=== PATIENT | male | born 1995 ===

== ENCOUNTER 2018-10-19 02:27 | Inpatient (IN) | payer MEDICARE, BC ==
[~2018-10-19] VITALS: Ht 180.3 cm; Wt 75.7 kg
[2018-10-19] VITALS (11 sets, daily range): BP systolic 99–166; BP diastolic 40–110; Ht 180.3 cm; Wt 75.7 kg
[~2018-10-19 02:27] MED LIST: CARB100C4 PO; CYCL10TA29 PO; DULO60CA7 PO; GABA-549 PO; HYDR-4225 PO; NOR25 PO; OXYB10TA21 PO; OXYC-823 PO; TAMS0.4C70 PO
[2018-10-19] MEDS ORDERED: NORMOSOL R SOLN(*) 1000 ML BAG 1,000 ML IV PRN (06:30)
[2018-10-19] MEDS ORDERED: ceFAZolin(*) 1 GM VIAL 1 GM in NS(*) 0.9% 100 ML ADDVANT BAG 100 ML IVPB ONE (06:30)
[2018-10-19] MEDS ORDERED: LIDOCAINE/SOD BICARB 8.4% SYR ID ONE (06:30)
[2018-10-19] MEDS ORDERED: ROPIVACAINE 0.2% 400 MG/200ML 250 ML CONINFUS ONE (06:30)
[2018-10-19] MEDS ORDERED: FAMOTIDINE 20 MG TAB PO ONE (06:30)
[2018-10-19] MEDS ORDERED: MIDAZOLAM 2 MG/2 ML VIAL IVP PRN (06:30)
[2018-10-19] MEDS ORDERED: ROPIVACAINE 0.2% 20 ML VIAL ONE ×2 (10:33→11:25)
[2018-10-19] MEDS ORDERED: ROPIVACAINE 0.5% 20 ML VIAL ONE (10:33)
[2018-10-19] MEDS ORDERED: DEXAMETHASONE SOD PHOS 10MG/ML ONE (10:40)
[2018-10-19] MEDS ORDERED: LIDOCAINE 2% IV 100 MG/5ML SYR ONE (10:46)
[2018-10-19] MEDS ORDERED: fentaNYL CITR 250 MCG/5 ML AMP ONE (10:46)
[2018-10-19] MEDS ORDERED: PROPOFOL EMUL(*) 10MG/ML 20 ML 20 ML ONE (10:47)
[2018-10-19] MEDS ORDERED: KETAMINE HCL 200 MG/20 ML MDV ONE (10:49)
[2018-10-19] MEDS ORDERED: EPINEPHrine HCL 1 MG/ML AMP ONE (11:24)
[2018-10-19] MEDS ORDERED: BUPIV/EPI 0.25% 1:200,000 50ML INFIL ONE (11:24)
[2018-10-19] MEDS ORDERED: GELATIN SPONGE SZ 100 ONE (11:24)
[2018-10-19] MEDS ORDERED: GELATIN SPONGE 12-7MM ONE (11:25)
[2018-10-19] MEDS ORDERED: MINERAL OIL LIGHT 10 ML VIAL ONE (12:00)
[2018-10-19] MEDS ORDERED: DEXAMETHASONE SOD 4 MG/ML VIAL ONE (12:48)
[2018-10-19] MEDS ORDERED: ONDANSETRON 4 MG/2 ML VIAL ONE (12:50)
[2018-10-19] MEDS ORDERED: fentaNYL CITR 100 MCG/2 ML AMP ONE (14:44)
[2018-10-19] MEDS ORDERED: diphenhydrAMINE 25 MG CAP PO PRN (16:45)
[2018-10-19] MEDS ORDERED: BISACODYL 10 MG SUPP PR PRN (16:45)
[2018-10-19] MEDS ORDERED: KCL/D5LR 20 MEQ/1000 ML PREMIX 1,000 ML IV PRN (16:45)
[2018-10-19] MEDS ORDERED: MAGNESIUM HYDROXIDE* 30ML UDCP PO PRN (16:45)
[2018-10-19] MEDS ORDERED: FLUSH 10 ML SYR IVP PRN (16:45)
[2018-10-19] MEDS ORDERED: MAGNESIUM CITRATE 300 ML BTL PO PRN (16:45)
[2018-10-19] MEDS ORDERED: ONDANSETRON 4 MG/2 ML VIAL IVP PRN (16:45)
[2018-10-19] MEDS ORDERED: KETOROLAC 30 MG/ML VIAL IVP PRN (16:45)
[2018-10-19] MEDS ORDERED: ACETAMINOPHEN 500 MG TAB PO PRN (16:45)
[2018-10-19] MEDS ORDERED: PROMETHAZINE 25 MG/ML 1 ML AMP IVP PRN (16:45)
--- NOTE | 2018-10-19 17:04 | RADIOLOGY IMAGING REPORT ---
[place] [facility] [place] NAME: Greg Broussard : 1995 MR: [id number] V: [id number] EXAM DATE: ORDERING PHYSICIAN: TORSTEN DALE TECHNOLOGIST: Location: [facility] Patient: Greg Broussard : 1995 Visit/Account:[id number] Date of Sevice: 10/19/2018 Technique: C-ARM FLUORO 1 HR HISTORY: RIGHT ANKLE Comparison studies: None FINDINGS: 6 operative fluoroscopic images were obtained of the right ankle. 2 cortical screws sasha e the subtalar joint. There is also postoperative changes traversing the tibiotalar joint. Fluoroscopy time: 1.32 minutes IMPRESSION: 1. Intraoperative fluoroscopic radiographs as described above. Please see operative report for furth er details. Report Dictated By: Maik Trammell DO at 10/19/2018 4:57 PM Report E-Signed By: Maik Trammell DO at 10/19/2018 4:59 PM WSN:[id number]
[2018-10-19] MEDS: ceFAZolin(*) 1 GM VIAL 1 GM in NS(*) 0.9% 100 ML ADDVANT BAG 100 ML IVPB SCH (20:02)
--- NOTE | 2018-10-19 20:34 | OPERATIVE REPORT 1 ---
EVENT DATE: October 19, 2018 SURGEON: Shaun Decker MD ANESTHESIOLOGIST: Neri Guerrero MD ANESTHESIA: multi township assessor: JUDI Celis PREOPERATIVE DIAGNOSIS Acute vascular necrosis of the talus. POSTOPERATIVE DIAGNOSIS Acute vascular necrosis of the talus. PROCEDURE PERFORMED Calcaneal/tibial/talar fusion. ESTIMATED BLOOD LOSS Minimal. DESCRIPTION OF OPERATION Patient was brought to the operating room and placed in a supine position. A bump was placed under the right hip, and right lower extremity was prepped and draped in the normal sterile fashion using Prevail, sterile stockinettes, sterile U-drape, and sterile extremity drape over the lower extremities. Stockinette was incised above the knee and held with Coban. Esmarch was then used to exsanguinate the lower extremity, and the tourniquet was turned up to 300 mmHg. First incision made directly over the lateral malleolus. Skin was incised with a 15 blade down to subcutaneous tissue. Subcutaneous tissue was bluntly dissected down to the fibula. I then bluntly dissected over to the syndesmosis. I was able to clean out the syndesmosis. I placed two Hohmanns around the fibula, and about 2 cm proximal from the ankle joint, I used an oscillating saw to transect the fibula. I transected it completely across. From here, I rotated the fibula completely laterally. I was able to debride in between. I then cut the fibula longitudinally using a saw and was able to take half of the fibula out for bone graft. At this point, I was able to get into the ankle. A lamina hand cutter apprentice was placed into the ankle and found we could find the nonunion using a Hillsgrove. I was able to use the [place] to get to the nonunion, but the screws were still in place. I then made an incision both medial and lateral on the talar neck. I was able to find the screws. Two of them were lateral, which I was able to remove without any difficulty. One was medial, which I was able to remove as well. Once I had all three screws completely removed, I then removed the screws out of the medial malleolus, making a small incision over the distal tip of the medial malleolus, finding the screws, and removing them with the appropriate screwdriver. Once that was all done, I then turned my attention back to the nonunion. I was able to then take a [place]grove and go right through the nonunion. 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 Some of it actually was alive, but most of it was completely . I was able to remove that with a rongeur osteotome. Once that was completely removed, I then removed all the cartilage that was left on the subtalar joint and cartilage on the distal tibia, though there was not much on distal tibia due to the significant arthritis. Once I had that removed, I did a 2.0 drill bit perforating the subchondral bone on the tibia and on the talus as much as possible, and I felt I had good bleeding at both sides. At this point, I turned my attention to getting the foot in the correct position. What I was able to do is get the foot almost to 90 degrees, but the translated posteriorly so actually the neck of the talus that was still present was now underneath the tibia so I could get some good compression between the tibia and the calcaneus and the talar neck. Once I had that in the appropriate position and very, very good compression, I then placed the pin from the plantar aspect of the heel just slightly laterally. Under fluoroscopy both in AP and lateral, I was able to get the pin directly up into the tibia. Once it was directly up into the tibia, I drilled the calcaneus, drilled it through, and I was actually able to drill a little bit into the talar neck and into the tibia. At this point, we drilled up to a 10.5, reamed up to a 10.5, and put a 10 mm, 150 Integra tibial nail up without any difficulty. Once I felt I got that in a decent position checking on AP and lateral, through the guide that was present, I placed two screws from the calcaneus into the posterior calcaneus, making a small incision. Drills were then placed, and two screws were placed into the calcaneus through the nail without any difficulty. Once I had those screws in place, I again made sure the foot was as close to neutral as I could get and compressed as well. Then, we drilled two screws distal and one proximal through the nail using the guides. Once those were in appropriate position checking on fluoroscopy AP and lateral, we thought we had good compression as well. We then finished our bone graft. We had actually taken the volume that we had taken out and cut it down by half, so I did not feel like we needed iliac crest bone graft at this point. I used part of the fibula graft, I used part of the good talus that was left, and I used DBX bone to pack into this area. We actually had good fixation of the graft as well. Once I was done, I then took the rest of the fibula, brought it back over like a biological plate, put two screws, one distal and one proximal, holding it position to even give it more stability. At this point, I checked fluoroscopy AP and lateral, found to have good position, good compression, good alignment. We closed using 3-0 Monocryl and bria, Adaptic 4 x 4's, a big, bulking Schultz dressing. The patient went to Recovery. No complications. JESUS
[2018-10-20 03:39] VITALS: BP 114/45
[2018-10-20] MEDS: ceFAZolin(*) 1 GM VIAL 1 GM in NS(*) 0.9% 100 ML ADDVANT BAG 100 ML IVPB SCH ×2 (03:59→11:29)
[2018-10-20 07:24] VITALS: BP 93/46
--- NOTE | 2018-10-20 09:35 | DISCHARGE SUMMARY ---
HOSPITAL COURSE Greg underwent a talar resection, tibiotalar calcaneal fusion with fibular bone grafting. He did extremely well during surgery. Postoperative night one, he did have a little drainage from the incisions but it was rewrapped and it stopped. His pain was well controlled with a popliteal and saphenous block. Postoperative day one, he passed physical therapy in which he was up moving around, nonweightbearing. I then discharged him home with pain medication to follow up in two weeks, nonweightbearing for two months on that side. I will see him back in two weeks in the office for reevaluation. JESUS
[2018-10-20 10:17] VITALS: BP 119/63
== END 2018-10-20 14:00 | disposition home or self-care (01) | DRG 493 ==
LOC: OR 02:27 → MED 17:40
PROVIDERS: ADMIT Orthopaedic Surgery; ATTEND Orthopaedic Surgery
PROC: 0SPF04Z Removal of Internal Fixation Device from Right Ankle Joint, Open Approach (ICD-10-PCS; 2018-10-19)
PROC: 0QTL0ZZ Resection of Right Tarsal, Open Approach (ICD-10-PCS; 2018-10-19)
PROC: 0SGH07Z Fusion of Right Tarsal Joint with Autologous Tissue Substitute, Open Approach (ICD-10-PCS; principal; 2018-10-19 12:26)
PROC: 0SGG04Z Fusion of Left Ankle Joint with Internal Fixation Device, Open Approach (ICD-10-PCS; 2018-10-19 12:26)
DX: M87.874 Other osteonecrosis, right foot (principal); S92.10 Unspecified fracture of talus; M21.371 Foot drop, right foot; G40.909 Epilepsy, unspecified, not intractable, without status epilepticus; Z87.820 Personal history of traumatic brain injury
CPT/HCPCS: 76000; 76942; 97162; J0171; J0690; J1100; J1885; J2001; J2250; J2405; J2704; J2795; J3010; J3490; J7050

== ENCOUNTER 2019-06-14 00:58 | Inpatient (IN) | payer MEDICARE, BC ==
[2019-06-14] VITALS (16 sets, daily range): BP systolic 86–142; BP diastolic 58–130
[~2019-06-14] VITALS: Ht 180.3 cm; Wt 75.7 kg
[~2019-06-14 00:58] MED LIST changes: +BREX0.5T PO; +DICL-195 PO; +ceFAZolin(*) 1 GM VIAL 1 GM in NS(*) 0.9% 100 ML MINI-BAG 100 ML IVPB ONE
[2019-06-14] MEDS ORDERED: ceFAZolin(*) 1 GM VIAL 1 GM in NS(*) 0.9% 100 ML MINI-BAG 100 ML IVPB ONE (05:40)
[2019-06-14] MEDS ORDERED: FAMOTIDINE 20 MG TAB PO ONE (06:15)
[2019-06-14] MEDS ORDERED: MIDAZOLAM 2 MG/2 ML VIAL IVP PRN (06:15)
[2019-06-14] MEDS ORDERED: NORMOSOL R SOLN(*) 1000 ML BAG 1,000 ML IV PRN (06:15)
[2019-06-14] MEDS ORDERED: LIDOCAINE/SOD BICARB 8.4% SYR ID ONE (06:15)
[2019-06-14] MEDS ORDERED: ONDANSETRON 4 MG/2 ML VIAL ONE (06:25)
[2019-06-14] MEDS ORDERED: LIDOCAINE MPF 1% 5 ML VIAL ONE (06:25)
[2019-06-14] MEDS ORDERED: PROPOFOL EMUL(*) 10MG/ML 20 ML 20 ML ONE (06:25)
[2019-06-14] MEDS ORDERED: DEXAMETHASONE SOD 4 MG/ML VIAL ONE (06:25)
[2019-06-14] MEDS ORDERED: fentaNYL CITR 100 MCG/2 ML AMP ONE ×3 (06:28→08:48)
[2019-06-14] MEDS ORDERED: ROPIVACAINE 0.5% 20 ML VIAL ONE ×2 (06:29→07:42)
[2019-06-14] MEDS ORDERED: LIDOCAINE 1%MDV(*)200 MG/20 ML 1 ML ONE (06:29)
[2019-06-14] MEDS ORDERED: KETOROLAC 30 MG/ML VIAL ONE (08:55)
--- NOTE | 2019-06-14 09:02 | OPERATIVE REPORT 1 ---
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 PROCEDURE PERFORMED Right below knee amputation. ESTIMATED BLOOD LOSS Minimal. FLUIDS Minimal. DESCRIPTION OF PROCEDURE The patient was brought to the operating room and placed in the supine position. Bump hip placed under the right hip to align the right lower extremity. The right lower extremity was prepped and draped in normal sterile fashion using Prevail. Sterile stockinette, sterile U-drape and sterile extremity drape were placed over the lower extremity. The stockinette was incised above the knee and held with Coban. An Esmarch was then used to exsanguinate the limb. The tourniquet was turned out 300 mmHg. A fish-mouth type incision was made just about 7 to 8 cm distal to the tibial tubercle. We first went through the anterior compartment. The skin was incised with a 15 blade down to the subcutaneous tissue. The subcutaneous tissue was bluntly dissected down to the fascia. The fascia was then incised with cautery. The muscle was then incised using electrocautery down to the anterior tibialis vasculature. The vasculature was identified. The nerve was then cut sharply but the artery and nerve were then tied off using 2-0 Silk suture. I then was able to get down to the lateral compartment. The lateral compartment, electrocautery was used to dissect through until I found the lateral superficial peroneal nerve which I cut just with the knife. I then used electrocautery to go down to the fibula. I went all the way across medially to the interosseous ligament which was found and then all the way over the tibia behind. I then used a elevator to elevate the tissue and the vessels off the posterior aspect of the tibia and fibula. Once I had placed the elevator behind there as a retractor, I then used an oscillating saw to transect the tibia and then I transected the fibula about 1 to 2 cm more proximal. At this point, I did an anterior chamfer, so there was no rubbing of the anterior portion of the tibia. Once that was done, I was able to remove the leg using an amputation knife to do a posterior flap of the posterior vessels and the posterior compartment. From here, I was able to identify the popliteal nerve in which I was able to identify, debride it, and sharply dissect it, bringing it back up into the muscle. I found the popliteal vessels. I was able to identify them and tie them all off vein and artery using a 2-0 Silk stitch. From here, I brought the posterior flap up of the muscle. I debrided the posterior muscle significantly to get it up. I then used a 2-0 Vicryl to bring the posterior flap up over top of the end of the bone and attached to the anterior fascia. Once that was done, I then brought the skin up, closed it using 3-0 Vicryl and then bria for the skin. Adaptic 4 x 4s and a large stump sock. The patient went to recovery. There were no complications. JESUS
[2019-06-14] MEDS ORDERED: ACETAMINOPHEN(*)1000 MG/100 ML 100 ML IVPB ONE (09:03)
[2019-06-14] MEDS ORDERED: BISACODYL 10 MG SUPP PR PRN (09:15)
[2019-06-14] MEDS ORDERED: FLUSH 10 ML SYR IVP PRN (09:15)
[2019-06-14] MEDS ORDERED: diphenhydrAMINE 25 MG CAP PO PRN (09:15)
[2019-06-14] MEDS ORDERED: ONDANSETRON 4 MG/2 ML VIAL IVP PRN (09:15)
[2019-06-14] MEDS ORDERED: MAGNESIUM CITRATE 300 ML BTL PO PRN (09:15)
[2019-06-14] MEDS ORDERED: ACETAMINOPHEN 500 MG TAB PO PRN (09:15)
[2019-06-14] MEDS ORDERED: KCL/D5LR 20 MEQ/1000 ML PREMIX 1,000 ML IV PRN (09:15)
[2019-06-14] MEDS ORDERED: PROMETHAZINE 25 MG/ML 1 ML AMP IVP PRN (09:15)
[2019-06-14] MEDS ORDERED: MAGNESIUM HYDROXIDE* 30ML UDCP PO PRN (09:15)
[2019-06-14] MEDS ORDERED: HYDROmorphone HCL 2 MG/ML SDV ONE (09:16)
[2019-06-14] MEDS: ceFAZolin(*) 1 GM VIAL 1 GM in NS(*) 0.9% 100 ML MINI-BAG 100 ML IVPB SCH ×2 (15:15→22:55)
[2019-06-14] MEDS: oxyCODON/ACET (*)5/325MG (CII) 1 TAB TAB PO PRN ×2 (16:21→20:36)
--- NOTE | 2019-06-14 18:40 | NUR ---
Physical Therapy Impression PT eval completed followed by treatment session. Pt initially maintaining his knee flexed at 90 degrees and pressing weight down through residual limb while in bed. Pt is able to actively straighten it to approximately 30 degrees flexion before noting a stretch and aggressively bending it to 90 degrees again. Orders obtained to place pt in a hinged T-scope knee brace to allow for no greater than 30 degrees flexion and gradually wean down to full extension as tolerated. Plan to transition to a basic knee immobilizer once full extension is obtained, to protect distal end of residual limb during transfers as well. Once brace applied, pt participated in stand/pivot transfer from bed to W/C and then standing at sink to wash hands. Pt is impulsive with previous history of TBI and does not recall to lock brakes prior to standing. Pt's strength is excellent overall and will likely progress very well with ambulation and higher level dynamic mobility as residual limb heals. Pt would benefit from an aggressive rehab setting that will allow him to maintain his upper body fitness level and ensure his safety related to TBI injury while optimizing the outcome for his recent R) BKA as it pertains to his functional mobility. Physical Therapy Goals 1. Pt to be indep for bed mobility and supine to/from sit transfers safely 2. Pt to be SBA/CGA for safety with sit to/from stand transfers 3. Pt to ambulate with hop-to pattern and non-weight bearing on R) residual limb x 100' with FWW 4. Pt to self propel W/C safely with turns and straight line distance while ensuring safety of elevated residual limb. Patient's Goals
[2019-06-14] MEDS: NYSTATIN 5 ML UDCUP PO SCH (20:39)
[2019-06-14] MEDS ORDERED: FLUTICASONE PROP 0.05% 16 GM ONE (22:14)
[2019-06-14] MEDS: FLUTICASONE PROP 0.05% 16 GM SCH (22:15)
[2019-06-14] MEDS: KETOROLAC 30 MG/ML VIAL IVP PRN (22:55)
[2019-06-15] MEDS: oxyCODON/ACET (*)5/325MG (CII) 1 TAB TAB PO PRN ×6 (00:26→22:09)
[2019-06-15] MEDS ORDERED: HYDROmorphone HCL 2 MG/ML SDV IVP PRN (03:50)
[2019-06-15] MEDS: METAXALONE 800 MG TAB PO SCH ×4 (04:07→20:54)
[2019-06-15 04:09] VITALS: BP 116/81
[2019-06-15] MEDS: KETOROLAC 30 MG/ML VIAL IVP PRN ×2 (05:12→11:00)
[2019-06-15] MEDS: ceFAZolin(*) 1 GM VIAL 1 GM in NS(*) 0.9% 100 ML MINI-BAG 100 ML IVPB SCH (06:32)
[2019-06-15 08:04] VITALS: BP 114/62
--- NOTE | 2019-06-15 09:09 | NUR ---
Physical Therapy Impression Pt agreeable to therapy session, difficult at times to understand secondary to effects of TBI. Pt reporting high pain levels throughout session of residual limb. RN reports that pt removed T-scope. PT donned and locked brace into full knee extension, pt and CG education provided on importance of preventing knee flexion contracture. CGA for all mobility d/t high level of impulsivity demonstrated by pt. Ambulation x100' wtih RW, pt maintained balance throughout ambulation with hopping gait. Pt regularly attempted to complete triceps dips on walker with L) LE floating off ground, PT firmly instructed pt to discontinue tricep dips to ensure safety. Pt provided with handweights as suggested by RN and approved by surgeon to allow pt to complete UE weight lifting throughout the day, as he regularly performs this at home. Pt left in bed with R) LE elevated on pillow and floated and bed alarm in place. Pt with great rehab potential physically, rec acute rehab. Physical Therapy Goals Patient's Goals
[2019-06-15] MEDS ORDERED: DULO30CA35 PO (09:16)
[2019-06-15] MEDS ORDERED: GABA-551 PO ×2 (09:22)
[2019-06-15] MEDS ORDERED: OXYB-13 PO (09:22)
[2019-06-15] MEDS ORDERED: OXYC20TA99 PO (09:22)
[2019-06-15] MEDS ORDERED: OXYC-827 PO (09:22)
[2019-06-15] MEDS ORDERED: FLUT16SP19 NS (09:24)
[2019-06-15] MEDS ORDERED: NON-FORMULARY MEDICATION MISCELL (Gabapentin 400 MG) PO SCH (09:30)
[2019-06-15] MEDS ORDERED: diphenhydrAMINE 25 MG CAP PO PRN (09:30)
[2019-06-15] MEDS ORDERED: carBAMazepine 100 MG CHEW PO SCH (10:00)
[2019-06-15] MEDS: TAMSULOSIN HCL 0.4 MG CAP PO SCH (10:03)
[2019-06-15] MEDS: NYSTATIN 5 ML UDCUP PO SCH ×4 (10:04→20:54)
[2019-06-15] MEDS: FLUTICASONE PROP 0.05% 16 GM SCH ×2 (10:04→20:55)
[2019-06-15] MEDS: GABAPENTIN(*) 300 MG CAP 300 MG, GABAPENTIN(*) 100 MG CAP 100 MG PO SCH ×2 (10:10→14:03)
--- NOTE | 2019-06-15 10:19 | Hospitalist Consultation ---
History of Present Illness Requesting Physician Dr. Givens Reason for Consult TBI History of Present Illness This patient was admitted for below knee amputation. He has a history of traumatic brain injury. History Problems: (1) TBI (traumatic brain injury) Home Meds Reported Medications Fluticasone Prop 50 Mcg Ns (FLONASE 50 MCG NS) 16 Gm Climax.susp, 1 SPRAY NS BID, BOT 06/15/19 Oxycodone Hcl (OXYCONTIN) 15 Mg Tab.er.12h, 15 MG PO AM, evening 06/15/19 Oxycodone Hcl (OXYCONTIN) 20 Mg Tab.er.12h, 20 MG PO QHS, TAB 06/15/19 Oxybutynin Chloride (DITROPAN XL) 5 Mg Tab.er.24, 5 MG PO DAILY, TAB 06/15/19 Gabapentin (GABAPENTIN) 400 Mg Capsule, 800 MG PO QHS, CAPSULE 06/15/19 Gabapentin (GABAPENTIN) 400 Mg Capsule, 400 MG PO AM, noon, CAPSULE 06/15/19 Duloxetine Hcl (CYMBALTA) 30 Mg Capsule.dr, 30 MG PO QHS, #5 CAP 06/15/19 Diclofenac Sodium (DICLOFENAC SODIUM) 75 Mg Tablet.dr, 75 MG PO BID, TAB 06/10/19 Brexpiprazole (Rexulti) 0.5 Mg Tablet, 1 TAB PO DAILY 06/10/19 Carbamazepine (CARBAMAZEPINE) 100 Mg Cpmp.12hr, 100 MG PO BID, TAB 10/17/18 Hydroxyzine Hcl (HYDROXYZINE HCL) 25 Mg Tablet, 25 MG PO HS 10/17/18 Tamsulosin Hcl (TAMSULOSIN HCL) 0.4 Mg Cap.er.24h, 0.4 MG PO HS, CAP 10/17/18 Nortriptyline Hcl (NORTRIPTYLINE HCL) 25 Mg Cap, 2 TAB PO HS, CAP 10/17/18 Discontinued Reported Medications Duloxetine HCl (Duloxetine HCl) 60 Mg Capsule.dr, 30 MG PO BID 10/17/18 Oxybutynin Chloride (DITROPAN XL) 10 Mg Tab.er.24, 10 MG PO HS, TAB 10/17/18 Oxycodone Hcl (OXYCONTIN) 10 Mg Tab.er.12h, 15 MG PO BID, TAB 10/17/18 Gabapentin (GABAPENTIN) 300 Mg Capsule, 300 MG PO BID, CAPSULE 10/17/18 Cyclobenzaprine Hcl (CYCLOBENZAPRINE HCL) 10 Mg Tablet, 10 MG PO BID, #9 TAB 10/17/18 Allergies: Coded Allergies: No Known Drug Allergies (Unverified , 10/17/18) Hx Smoking: Yes (OCCASIONAL CIGAR SMOKER SINCE AGE 13. 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 PT BORN ADDICTED. WAS ADOPTED OUT.) Social Drug Use: Occasional Social Drugs: Marijuana, Cocaine When Quit Social Drugs?: QUIT 2011 Review of Systems All Systems Reviewed/Normal: Yes Exam Vital Signs Vital Signs Date Time Temp Pulse Resp B/P (MAP) Pulse Ox O2 Delivery O2 Flow Rate FiO2 06/15/19 08:04 98.4 76 22 114/62 (79) 90 Room Air 06/14/19 20:00 2.0 Cardiovascular: Regular Rate and Rhythm Respiratory: Clear to Auscultation Assessment and Plan Problems: (1) TBI (traumatic brain injury) Assessment & Plan: He is on multiple medications for mood stabilization and seizure prophylaxis. Venous Thromboembolism Antithrombotics Is Pt On Any Antithrombotics?: No Exam Sepsis Risk: No Definite Risk SANTIAGO CHARLES DO Jun 15, 2019 10:19
[2019-06-15] MEDS ORDERED: PROMETHAZINE HCL 25 MG TAB PO PRN (11:10)
[2019-06-15] MEDS ORDERED: ONDANSETRON 4 MG ODT TABDP SL PRN (11:10)
[2019-06-15] MEDS: KETOROLAC TROM 10MG TAB PO PRN ×3 (11:23→23:34)
[2019-06-15 14:09] VITALS: BP 138/53
[2019-06-15] MEDS: MELATONIN 3 MG TAB PO SCH (20:53)
[2019-06-15] MEDS: NORTRIPTYLINE HCL 25 MG CAP PO SCH (20:53)
[2019-06-15] MEDS: OXYBUTYNIN CHL XL 5 MG TABCR PO SCH (20:54)
[2019-06-15] MEDS: DULoxetine HCL 30 MG CAPCR PO SCH (20:54)
[2019-06-15] MEDS: GABAPENTIN(*) 300 MG CAP 600 MG, GABAPENTIN(*) 100 MG CAP 200 MG PO SCH (20:54)
[2019-06-15] MEDS ORDERED: GABAPENTIN 300 MG CAP PO SCH (21:00)
[2019-06-15] MEDS ORDERED: GABAPENTIN 800 MG PO SCH (21:00)
[2019-06-15] MEDS ORDERED: DULoxetine HCL 30 MG CAPCR PO SCH (21:00)
[2019-06-15] MEDS ORDERED: TAMSULOSIN HCL 0.4 MG CAP PO SCH (21:00)
[2019-06-15] MEDS ORDERED: OXYBUTYNIN CHL XL 5 MG TABCR PO SCH (21:00)
[2019-06-16 00:01] VITALS: BP 119/64
[2019-06-16] MEDS: oxyCODON/ACET (*)5/325MG (CII) 1 TAB TAB PO PRN ×3 (02:19→15:12)
[2019-06-16] MEDS: KETOROLAC TROM 10MG TAB PO PRN ×2 (07:14→20:58)
[2019-06-16 08:29] VITALS: BP 155/65
[2019-06-16] MEDS: BREXPIPRAZOLE 0.5 MG TAB PO SCH (09:00)
[2019-06-16] MEDS ORDERED: NICOTINE CARTRIDGE 1 EA PO PRN (09:00)
[2019-06-16] MEDS: FLUTICASONE PROP 0.05% 16 GM SCH ×2 (09:31→21:02)
[2019-06-16] MEDS: NICOTINE INH SYSTEM 10 MG/INH INH PRN ×2 (09:31→13:46)
[2019-06-16] MEDS: TAMSULOSIN HCL 0.4 MG CAP PO SCH (09:32)
[2019-06-16] MEDS: METAXALONE 800 MG TAB PO SCH ×3 (09:32→21:02)
[2019-06-16] MEDS: NYSTATIN 5 ML UDCUP PO SCH ×4 (09:34→21:02)
[2019-06-16] MEDS: GABAPENTIN(*) 300 MG CAP 300 MG, GABAPENTIN(*) 100 MG CAP 100 MG PO SCH ×2 (09:37→12:47)
--- NOTE | 2019-06-16 09:46 | RADIOLOGY IMAGING REPORT ---
FACILITY: [facility] - [place] PATIENT NAME: Greg Broussard : 1995 MR: [id number] V: [id number] EXAM DATE: ORDERING PHYSICIAN: MARCIAL POON TECHNOLOGIST: Location: [facility] Patient: Greg Broussard : 1995 Visit/Account:[id number] Date of Sevice: 06/16/2019 EXAMINATION: Portable AP Chest 06/16/2019 9:14 AM HISTORY: hypoxia, cough COMPARISON: None FINDINGS: Cardiomediastinal contours: Normal Lungs and pleura: Normal Bones/soft tissues: Normal IMPRESSION: Unremarkable portable chest. Report Dictated By: Andrews Guo MD at 06/16/2019 9:37 AM Report E-Signed By: Andrews Guo MD at 06/16/2019 9:38 AM WSN:[id number]
--- NOTE | 2019-06-16 09:54 | Hospitalist Progress Note ---
Subjective Progress Notes Subjective He was admitted s/p BKA. He appears more agitated this morning. His mother reports decreased sleep. He also has decreased oxygen saturations this morning. Patient Complains of: Cardiovascular: No: Chest Pain Physical Exam Vital Signs Date Time Temp Pulse Resp B/P (MAP) Pulse Ox O2 Delivery O2 Flow Rate FiO2 06/16/19 08:45 78 06/16/19 08:30 Oxy Mask 5.0 06/16/19 08:29 98.3 72 20 155/65 (95) Intake and Output 06/16/19 07:03 Intake Total 1320 ml Balance 1320 ml Intake Oral 1320 ml # Voids 3 General Appearance: No Acute Distress, Afebrile Cardiovascular: Regular Rate and Rhythm Respiratory: No Respiratory Distress, Clear to Auscultation GI: Soft and Non-Tender Psych: Appropriate Mood & Affect Assessment and Plan Problems: (1) TBI (traumatic brain injury) Assessment & Plan: He is on multiple medications for mood stabilization and seizure prophylaxis. (2) Hypoxia Status: Acute Assessment & Plan: He was found to have oxygen saturations in the 70's this morning. He is requiring 5L of oxygen, but is not tolerating oxygen well. He will be placed on Flutter therapy. Will continue to monitor. Exam Sepsis Risk: No Definite Risk MARCIAL POON MACHINE FEED OPERATOR Jun 16, 2019 09:53
--- NOTE | 2019-06-16 11:20 | NUR ---
Physical Therapy Impression Pt agitated and impulsive today. Per EMR, pt fell this morning and was found on ground next to bed. PT provided firm instructions today in attempts to improve safety and carry over. CGA for STS transfers. Ambulation x160' with RW and close w/c follow as well as close CGA in order to prevent falls. PT observed pt while he performed UE ther-ex at EOB, with cues to prevent W/B through R) residual limb. PT replaced t-scope brace with a knee immobilizer on R) limb, which was fit to leave 1-2 inches of brace past the end of the, with the goal of preventing weightbearing through the incision. Pt left in bed with bed alarm in place, RN notified. Physical Therapy Goals Patient's Goals
[2019-06-16 11:30] VITALS: BP 126/76
[2019-06-16 11:51] VITALS: Ht 180.3 cm; Wt 75.7 kg
[2019-06-16] MEDS ORDERED: OLANZapine 10 MG VIAL IM ONLY ONE ×2 (14:51→14:55)
[2019-06-16] MEDS ORDERED: WATER STERILE 10 ML VIAL IM ONLY ONE (14:55)
[2019-06-16] MEDS ORDERED: OLANZapine 10 MG VIAL IM ONLY PRN (15:15)
[2019-06-16] MEDS ORDERED: WATER STERILE 10 ML VIAL IM ONLY PRN (15:15)
[2019-06-16 15:54] VITALS: BP 102/56
[2019-06-16 19:57] VITALS: BP 116/83
[2019-06-16] MEDS: DULoxetine HCL 30 MG CAPCR PO SCH (20:58)
[2019-06-16] MEDS: MELATONIN 3 MG TAB PO SCH (21:01)
[2019-06-16] MEDS: GABAPENTIN(*) 300 MG CAP 600 MG, GABAPENTIN(*) 100 MG CAP 200 MG PO SCH (21:01)
[2019-06-16] MEDS: hydrOXYzine 25 MG TAB PO SCH (21:01)
[2019-06-16] MEDS: OXYBUTYNIN CHL XL 5 MG TABCR PO SCH (21:02)
[2019-06-16] MEDS: NORTRIPTYLINE HCL 25 MG CAP PO SCH (21:02)
[2019-06-16 22:48] VITALS: BP 102/58
[2019-06-17 02:17] VITALS: BP 113/70
[2019-06-17 06:16] LABS: PLATELET COUNT, AUTOMATED 212 K/uL (150-450)
[2019-06-17 07:14] VITALS: BP 130/77
--- NOTE | 2019-06-17 07:51 | DISCHARGE SUMMARY ---
PREOPERATIVE DIAGNOSIS Failed tibiotalar calcaneal fusion with nonunion, infection and fracture. POSTOPERATIVE DIAGNOSIS Failed tibiotalar calcaneal fusion with nonunion, infection and fracture. PROCEDURE Right below-knee amputation. HOSPITAL COURSE After surgery, he did extremely well except the nerve block did not work much, had severe pain. Postoperative night #1 and day #2, though, they were able to get that under control just with oral and IV medications. He did well postoperative day #1 with physical therapy. He was able to get up and move around on his own, being nonweightbearing on that right BKA. He did have some issues with his breathing, which they kept him on 2L of oxygen and with 2L of oxygen he was satting at 97. He had a chest x-ray that was completely clear, just a little congested and having difficulty exchanging air. On postoperative day #2, his wound was checked. It was clean, dry and intact. He had full range of motion of his knee. He did have some mental difficulty being in the hospital and being with his TBI but they were able to get that under control. Postoperative day #3, he was able to be discharged to rehab[facility]. He is to be nonweightbearing on the right lower extremity. He is to wear the brace at nighttime only. He can take the brace off during the day and he can take the dressing off once a day and shower. I will see him in two weeks in the office. Hopefully, in two weeks we can then get the facilities engineering manager involved and start talking about shrinking and getting a prosthesis placed. JESUS
[2019-06-17] MEDS: FLUTICASONE PROP 0.05% 16 GM SCH ×2 (08:20→21:00)
[2019-06-17] MEDS: NYSTATIN 5 ML UDCUP PO SCH ×4 (08:21→21:02)
[2019-06-17] MEDS: TAMSULOSIN HCL 0.4 MG CAP PO SCH (08:21)
[2019-06-17] MEDS: GABAPENTIN(*) 300 MG CAP 300 MG, GABAPENTIN(*) 100 MG CAP 100 MG PO SCH ×2 (08:22→11:27)
[2019-06-17] MEDS: METAXALONE 800 MG TAB PO SCH ×3 (08:22→21:01)
[2019-06-17] MEDS: oxyCODON/ACET (*)5/325MG (CII) 1 TAB TAB PO PRN ×2 (08:23→21:02)
[2019-06-17] MEDS: BREXPIPRAZOLE 0.5 MG TAB PO SCH (08:23)
--- NOTE | 2019-06-17 10:34 | NUR ---
PHYSICAL THERAPY INFORMATION TRANSFER SHEET BED MOBILITY: Modified I/ AE TRANSFERS: CGA GAIT: 160 ' with RW and CGA Weightbearing Status: Non weight bearing, use knee immobilizer Verbalizes Needs: Yes Understands Directions Yes Cooperative: Yes Family Teaching: Yes Physical Therapy Comment:
--- NOTE | 2019-06-17 11:16 | NUR ---
Physical Therapy Impression Pt able to stand from wheelchair to RW with CGA and ambulate 125' with RW and CGA. Pt would benefit from acute rehab in order to optimize physical functioning s/p BKA in the context of a prior TBI. Physical Therapy Goals 1. Pt to be indep for bed mobility and supine to/from sit transfers safely 2. Pt to be SBA/CGA for safety with sit to/from stand transfers 3. Pt to ambulate with hop-to pattern and non-weight bearing on R) residual limb x 100' with FWW 4. Pt to self propel W/C safely with turns and straight line distance while ensuring safety of elevated residual limb. Patient's Goals
[2019-06-17] MEDS: NICOTINE INH SYSTEM 10 MG/INH INH PRN (11:27)
--- NOTE | 2019-06-17 12:47 | Hospitalist Progress Note ---
Subjective Progress Notes Subjective He denies any complaints. Yesterday afternoon, patient had an episode of agitation. Likely, secondary to decreased sleep in the hospital. He required Zyprexa, which helped patient to get sleep. He appears much improved this morning. Patient Complains of: Cardiovascular: No: Chest Pain Respiratory: No: Shortness of Breath Physical Exam Vital Signs Date Time Temp Pulse Resp B/P (MAP) Pulse Ox O2 Delivery O2 Flow Rate FiO2 06/17/19 09:32 92 06/17/19 07:14 97.9 60 12 130/77 (94) Nasal Cannula 1.0 Intake and Output 06/17/19 01:03 Intake Total 780 ml Balance 780 ml Intake Oral 780 ml # Voids 2 General Appearance: Alert, Awake, No Acute Distress, Afebrile Cardiovascular: Regular Rate and Rhythm Respiratory: No Respiratory Distress, Clear to Auscultation GI: Soft and Non-Tender Extremities: Warm, Perfused Psych: Appropriate Mood & Affect Result Diagram: 06/17/1952806/17/19528 Assessment and Plan Problems: (1) TBI (traumatic brain injury) Assessment & Plan: He is on multiple medications for mood stabilization and seizure prophylaxis. (2) Hypoxia Status: Acute Assessment & Plan: Improving. He was found to have decreased oxygen saturations 06/17. He was placed on Flutter therapy. Exam Sepsis Risk: No Definite Risk MARCIAL POON APPLICATIONS DEVELOPMENT CONSULTANT Jun 17, 2019 12:47
[2019-06-17 18:48] VITALS: BP 127/68
[2019-06-17] MEDS: NORTRIPTYLINE HCL 25 MG CAP PO SCH (21:00)
[2019-06-17] MEDS: DULoxetine HCL 30 MG CAPCR PO SCH (21:00)
[2019-06-17] MEDS: hydrOXYzine 25 MG TAB PO SCH (21:01)
[2019-06-17] MEDS: GABAPENTIN(*) 300 MG CAP 600 MG, GABAPENTIN(*) 100 MG CAP 200 MG PO SCH (21:01)
[2019-06-17] MEDS: MELATONIN 3 MG TAB PO SCH (21:02)
[2019-06-17] MEDS: OXYBUTYNIN CHL XL 5 MG TABCR PO SCH (21:02)
[2019-06-17 23:58] VITALS: BP 130/79
[2019-06-18] MEDS: KETOROLAC TROM 10MG TAB PO PRN (00:10)
[2019-06-18 03:20] VITALS: BP 104/59
[2019-06-18 08:29] VITALS: BP 122/76
[2019-06-18] MEDS: FLUTICASONE PROP 0.05% 16 GM SCH (08:38)
[2019-06-18] MEDS: NYSTATIN 5 ML UDCUP PO SCH (08:39)
[2019-06-18] MEDS: METAXALONE 800 MG TAB PO SCH (08:39)
[2019-06-18] MEDS: TAMSULOSIN HCL 0.4 MG CAP PO SCH (08:39)
[2019-06-18] MEDS: GABAPENTIN(*) 300 MG CAP 300 MG, GABAPENTIN(*) 100 MG CAP 100 MG PO SCH (08:42)
[2019-06-18] MEDS: NICOTINE INH SYSTEM 10 MG/INH INH PRN (08:45)
[2019-06-18] MEDS: BREXPIPRAZOLE 0.5 MG TAB PO SCH (08:47)
--- NOTE | 2019-06-18 09:51 | Hospitalist Progress Note ---
Subjective Progress Notes Subjective He was admitted s/p BKA. He had no acute events overnight. [facility] [place]. Patient Complains of: Cardiovascular: No: Chest Pain Respiratory: No: Shortness of Breath Physical Exam Vital Signs Date Time Temp Pulse Resp B/P (MAP) Pulse Ox O2 Delivery O2 Flow Rate FiO2 06/18/19 09:11 Room Air 06/18/19 08:29 97.4 86 122/76 (91) 90 06/18/19 03:20 12 Intake and Output 06/18/19 01:03 Intake Total 2440 ml Balance 2440 ml Intake Oral 2440 ml # Voids 4 # Bowel Movements 1 General Appearance: Alert, Awake, No Acute Distress, Afebrile Neuro: No Gross deficits Cardiovascular: Regular Rate and Rhythm Respiratory: No Respiratory Distress, Clear to Auscultation GI: Soft and Non-Tender Psych: Alert & Oriented X3, Appropriate Mood & Affect Result Diagram: 06/17/1929 06/17/19528 Assessment and Plan Problems: (1) TBI (traumatic brain injury) Assessment & Plan: He is on multiple medications for mood stabilization and seizure prophylaxis. (2) Hypoxia Status: Acute Assessment & Plan: Improved. He was found to have decreased oxygen saturations 06/17. He was placed on Flutter therapy. Exam Sepsis Risk: No Definite Risk MARCIAL POON Jun 18, 2019 09:51
[2019-06-18] MEDS: oxyCODON/ACET (*)5/325MG (CII) 1 TAB TAB PO PRN (10:32)
== END 2019-06-18 11:00 | DRG 476 ==
LOC: OR 00:58 → MED 10:15
PROVIDERS: ADMIT Orthopaedic Surgery; ATTEND Orthopaedic Surgery
PROC: 0Y6H0Z1 Detachment at Right Lower Leg, High, Open Approach (ICD-10-PCS; principal; 2019-06-14 07:13)
DX: M96.0 Pseudarthrosis after fusion or arthrodesis (principal); F17.210 Nicotine dependence, cigarettes, uncomplicated; R09.02 Hypoxemia; Y83.8 Other surgical procedures as the cause of abnormal reaction of the patient, or of later complication, without mention of misadventure at the time of the procedure; Y79.3 Surgical instruments, materials and orthopedic devices (including sutures) associated with adverse incidents; Z87.820 Personal history of traumatic brain injury
CPT/HCPCS: 36415; 71045; 76942; 82310; 82374; 82435; 82565; 82947; 84132; 84295; 84520; 85025; 88305; 97161; A4216; J0131; J0690; J1100; J1170; J1885; J2001; J2250; J2405; J2704; J2795; J3010; J3490; Q0163